=== PATIENT | male | born 1960 | race Caucasian/White ===

== ENCOUNTER → 2019-04-29 | Outpatient (CLI) | payer OTHER ==
[2019-04-29 12:31] VITALS: BP 175/75; PULSE 47; RESP 18
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
== END ==
LOC: PNWHC3 12:09
PROVIDERS: ATTEND Specialist
DX: M48.062 Spinal stenosis, lumbar region with neurogenic claudication (principal); M51.16 Intervertebral disc disorders with radiculopathy, lumbar region; M47.26 Other spondylosis with radiculopathy, lumbar region; M46.96 Unspecified inflammatory spondylopathy, lumbar region; Z87.891 Personal history of nicotine dependence; Z79.891 Long term (current) use of opiate analgesic; Z79.84 Long term (current) use of oral hypoglycemic drugs; Z79.1 Long term (current) use of non-steroidal anti-inflammatories (NSAID)
CPT/HCPCS: 99201

== ENCOUNTER 2019-05-08 06:08 | Day surgery (SDC) | payer OTHER ==
[2019-05-06 16:10] VITALS: BMI 33.2
[2019-05-08] MEDS ORDERED: LACTATED RINGERS 1,000 ML IV SCH (06:27)
[2019-05-08 06:40] VITALS: RESP 16; TEMP 97.7
[2019-05-08 06:52] LABS: Glucose,Whole Blood 171 mg/dL (75-99)
[2019-05-08] MEDS ORDERED: fentaNYL (PF) 50 MCG/ML 2 ML AMP IV ONE (06:55)
[2019-05-08] MEDS ORDERED: IV FLUID CONTINUATION 1,000 ML IV ONE (07:34)
[2019-05-08 07:52] VITALS: BP 114/77; PULSE 71
--- NOTE | 2019-05-08 08:03 | FL ---
EXAMINATION TYPE: FL guided pain mgmt statistic DATE OF EXAM: 05/08/2019 CLINICAL HISTORY: Low back pain. TECHNIQUE: Fluoroscopy. COMPARISON: None. FINDINGS: Fluoroscopic guidance was provided during pain relief procedure performed by Dr. Garzon. A t otal of 12 seconds of fluoroscopic time was utilized during the procedure and 7 spot images are acqui red. Images acquired shows needle localization of the lumbar spine at multiple levels. IMPRESSION: As Above.
--- NOTE | 2019-05-08 08:40 | P.PCN ---
Date of Procedure: 05/08/19 Procedure(s) Performed: PREOPERATIVE DIAGNOSIS: Lumbar radiculopathy POSTOPERATIVE DIAGNOSIS: Lumbar radiculopathy Attending physician: Kita Garzon M.D. PROCEDURE 1. Transforaminal epidural steroid injection under fluoroscopic guidance L4-5, L5-S1 level, right side 2. Lumbar epidurogram ANESTHESIA: Local with 1% lidocaine 3 ml ; IV sedation with Versed and fentanyl , sedation time 21 minutes PROCEDURE INDICATION: The patient with low back pain and radiculopathy symptoms unresponsive to conservative treatment. Fluoroscopy was used for the procedure and fluoroscopic images were saved to the radiology portion of patient's chart. PROCEDURE DESCRIPTION / TECHNIQUE: The patient was seen and identified in the preoperative area. Risks, benefits, complications, and alternatives were discussed with the patient. The patient agreed to proceed with the procedure and signed the consent. IV was started, and vital signs were stable. Patient was taken to the OR and time out was completed. The patient was placed in the prone position on procedure table and a pillow was placed under the abdomen to reduce lumbar lordosis. The lumbosacral area was prepped and draped in the usual sterile fashion. Vital signs were closely monitored during the procedure. Conscious sedation was used. Using oblique fluoroscopy, the chin of the ``Suleiman dog and the skin and deeper tissues just below was localized with 1% lidocaine. Subsequently, a 22- gauge 5-inch spinal needle was advanced under a tunneled view fluoroscopic guidance just underneath the chin of the ``Suleiman dog . Under lateral fluoroscopy, the needle was then advanced to the posterior border of the foramen. After negative aspiration of CSF and blood and with no paresthesias, 1 mL of Isovue-200 contrast dye was injected under live fluoroscopy and there was no evidence of intravascular injection. The injectate solution consisting of 7.5 mg of dexamethasone with 1 mL of 1% lidocaine was then delivered at each site. A total of 15 mg of dexamethasone was used. The needle was withdrawn intact. At the end of the procedure, skin was cleansed, and bandages were applied. COMPLICATIONS: None COMMENTS: None DISPOSITION / PLANS: The patient was placed in a supine position and transferred to the recovery area in a stable condition for observation. There was no evidence of lower extremity motor or sensory deficit after the procedure. Patient was discharged from the recovery room after meeting discharge criteria. Home discharge instructions were given to the patient by the staff. The patient will follow up for repeat procedure in 2-4 weeks.
== END 2019-05-08 08:08 | disposition home or self-care (01) ==
LOC: ORPAIN 06:08
PROVIDERS: ATTEND Anesthesiology
DX: G89.29 Other chronic pain (principal); M51.16 Intervertebral disc disorders with radiculopathy, lumbar region; M48.061 Spinal stenosis, lumbar region without neurogenic claudication; M47.26 Other spondylosis with radiculopathy, lumbar region; E11.9 Type 2 diabetes mellitus without complications; E78.5 Hyperlipidemia, unspecified; I10 Essential (primary) hypertension; M10.9 Gout, unspecified; R19.4 Change in bowel habit; R14.0 Abdominal distension (gaseous); R35.0 Frequency of micturition; Z98.890 Other specified postprocedural states; Z87.891 Personal history of nicotine dependence; Z79.899 Other long term (current) drug therapy; Z79.1 Long term (current) use of non-steroidal anti-inflammatories (NSAID); Z79.84 Long term (current) use of oral hypoglycemic drugs; Z86.718 Personal history of other venous thrombosis and embolism; Z80.9 Family history of malignant neoplasm, unspecified
CPT/HCPCS: 64483; 64484; J2250; J1100; J3010; Q9966; 99152

== ENCOUNTER 2023-10-03 06:12 | Day surgery (SDC) | payer MEDICARE, OTHER ==
[~2023-10-03 06:12] MED LIST: LIDOCAINE 1% (10MG/ML) FOR IV START INTRADERMA PRN
[2023-10-03 06:54] LABS: Glucose,Whole Blood 156 mg/dL (70-110)
[2023-10-03] MEDS: LACTATED RINGERS 1,000 ML IV SCH (06:59)
[2023-10-03] MEDS ORDERED: PROPOFOL 10 MG/ML 20 ML VIAL IV ONE (07:17)
[2023-10-03 07:18] VITALS: TEMP 97.7
[2023-10-03] MEDS: LACTATED RINGERS 1,000 ML IV ONE (07:38)
--- NOTE | 2023-10-03 07:58 | P.PCN ---
Date of Procedure: 10/03/23 Procedure(s) Performed: BRIEF HISTORY: Patient is a 63-year-old pleasant white male scheduled for an elective colonoscopy as a part of screening for colon cancer. PROCEDURE PERFORMED: Colonoscopy with snare polypectomy. PREOPERATIVE DIAGNOSIS: Screening for colon cancer. IV sedation per Anesthesia. PROCEDURE: After informed consent was obtained, the patient, was brought into the endoscopy unit. IV sedation was administered by Anesthesia under continuous monitoring. Digital rectal examination was normal. Initially the Olympus CF-160 flexible video colonoscope was then inserted in the rectum, gradually advanced into the cecum without any difficulty. Careful examination was performed as the scope was gradually being withdrawn. Ileocecal valve and the appendiceal orifice were visualized and appeared normal. Prep was excellent. Mucosa of the cecum, appeared normal. Descending colon there was a 5 mm polyp removed by cold snare polypectomy. BiFlexy there was a 6 mm polyp that was removed by cold snare polypectomy. Rest of the ascending colon, transverse colon, descending colon, sigmoid colon, and rectum appeared normal. In the mid rectum there was a 3 mm polyp removed by cold snare polypectomy. Scattered sigmoid diverticulosis. Retroflexion was performed in the rectum and no lesions were seen. The patient tolerated the procedure well. IMPRESSION: 5 mm ascending colon polyp status post cold snare polypectomy 6 mm hepatic rectal polyp s/p snare polypectomy 3 mm rectal polyp s/p polypectomy Scattered sigmoid diverticulosis RECOMMENDATIONS: Findings of this examination were discussed with the patient as well as his family. He was advised to follow-up with the biopsy results. If the biopsy reveals adenoma he can have repeat colonoscopy in 5 years.
[2023-10-03 08:08] VITALS: BP 109/67; PULSE 55; RESP 16
== END 2023-10-03 08:12 | disposition home or self-care (01) ==
LOC: ORWHC2ENDO 06:12
PROVIDERS: ATTEND Internal Medicine Gastroenterology
DX: Z12.11 Encounter for screening for malignant neoplasm of colon (principal); D12.2 Benign neoplasm of ascending colon; D12.3 Benign neoplasm of transverse colon; K57.30 Diverticulosis of large intestine without perforation or abscess without bleeding; I10 Essential (primary) hypertension; E78.5 Hyperlipidemia, unspecified; J45.909 Unspecified asthma, uncomplicated; E11.9 Type 2 diabetes mellitus without complications; Z79.84 Long term (current) use of oral hypoglycemic drugs; Z98.890 Other specified postprocedural states; Z79.899 Other long term (current) drug therapy
CPT/HCPCS: 88305; 45385; J2704